=== PATIENT | female | born 1965 | race Caucasian/White ===

== ENCOUNTER 2021-01-15 05:40 | Emergency (ER) | payer OTHER ==
[~2021-01-15] VITALS: Ht 175.3 cm; Wt 71.4 kg
[2021-01-15 06:25] VITALS: BP 166/117
[2021-01-15] MEDS ORDERED: ASPIRIN CHEWABLE 81 MG TABLET. PO ONE (06:30)
--- NOTE | 2021-01-15 06:33 | PHYS DOC ---
Past History Past Medical History: Hypothyroid Additional Past Medical Histor: PLEURISY Past Surgical History: , Hysterectomy, Other Additional Past Surgical Histo: CARPAL TUNNEL Smoking: Cigarettes Adult General Chief Complaint Chief Complaint: SHORTNESS OF BREATH HPI HPI Patient is a 55-year-old female presenting for right-sided chest pain. Reports she was sleeping and woke up from her sleep with focal right-sided chest pain. Nothing known makes better, deep inspiration makes worse. Pain described as sharp and focal without radiation that is deep in right breast. Timing of symptoms has been constant since 2 AM. Reports with deep inhalation, severity is 9/10. Has history of pleurisy in the past, is concerned this feels like similar episodes. Also reports nasal congestion for past 48 hours without fever, cough or other concerning symptoms. Admits her son was recently sick and was evaluated at our facility within the past week, he was negative for COVID-19 at that time. Patient also admits going to same son's wedding 48 hours prior to arrival today. She has been vaccinated for COVID-19 with Moderna. Patient does have a history of ongoing cigarette abuse. No history of CAD, hemoptysis, blood clots, lower extremity swelling, long distance travel or hormone use Review of Systems Review of Systems Fourteen body systems of review of systems have been reviewed. See HPI for pertinent positives and negative responses, other ricardo all other systems are negative, non-pertinent or non-contributory Allergies Allergies Allergies Coded Allergies Type Severity Reaction Last Updated Verified No Known Drug Allergies 01/15/21 No Physical Exam Physical Exam Constitutional: Well developed, well nourished, no acute distress, non-toxic appearance. HENT: Normocephalic, atraumatic, bilateral external ears normal, oropharynx moist, no oral exudates, nose normal. Eyes: PERRLA, EOMI, conjunctiva normal, no discharge. Neck: Normal range of motion, no tenderness, supple, no stridor. Cardiovascular: Heart rate regular, sinus rhythm, no murmurs rubs or gallops Lungs & Thorax: Bilateral breath sounds clear to auscultation Abdomen: Bowel sounds normal, soft, no tenderness, no masses, no pulsatile masses. Nonsurgical abdomen, no peritoneal signs Skin: Warm, dry, no erythema, no rash. Back: No tenderness, no CVA tenderness. Extremities: No tenderness, no cyanosis, no clubbing, ROM intact, no edema. Neurologic: Alert and oriented X 3, grossly normal motor & sensory function, no focal deficits noted. Psychologic: Affect normal, judgement normal, mood normal. Current Patient Data Vital Signs Vital Signs Date Time Temp Pulse Resp B/P (MAP) Pulse Ox O2 Delivery O2 Flow Rate FiO2 01/15/21 06:25 98.1 75 18 166/117 100 Room Air Lab Results Laboratory Tests Test 01/15/21 06:55 White Blood Count 10.9 x10^3/uL Red Blood Count 4.35 x10^6/uL Hemoglobin 14.2 g/dL Hematocrit 41.9 % Mean Corpuscular Volume 97 fL Mean Corpuscular Hemoglobin 33 pg Mean Corpuscular Hemoglobin Concent 34 g/dL Red Cell Distribution Width 13.0 % Platelet Count 210 x10^3/uL Neutrophils (%) (Auto) 79 % Lymphocytes (%) (Auto) 14 % Monocytes (%) (Auto) 7 % Eosinophils (%) (Auto) 1 % Basophils (%) (Auto) 0 % Neutrophils # (Auto) 8.6 x10^3uL Lymphocytes # (Auto) 1.5 x10^3/uL Monocytes # (Auto) 0.7 x10^3/uL Eosinophils # (Auto) 0.1 x10^3/uL Basophils # (Auto) 0.0 x10^3/uL D-Dimer (Magaly) 1.65 mg/L Sodium Level 138 mmol/L Potassium Level 4.2 mmol/L Chloride Level 104 mmol/L Carbon Dioxide Level 28 mmol/L Anion Gap 6 Blood Urea Nitrogen 16 mg/dL Creatinine 0.7 mg/dL Estimated GFR (Cockcroft-Gault) 86.6 BUN/Creatinine Ratio 23 Glucose Level 123 mg/dL Calcium Level 8.2 mg/dL Total Bilirubin 0.4 mg/dL Aspartate Amino Transf (AST/SGOT) 16 U/L Alanine Aminotransferase (ALT/SGPT) 18 U/L Alkaline Phosphatase 88 U/L Troponin I Quantitative < 0.017 ng/mL Total Protein 6.8 g/dL Albumin 3.3 g/dL Albumin/Globulin Ratio 0.9 Lipase 83 U/L Current Medications Medications (Trade) Dose Ordered Sig/Connie Route PRN Reason Start Time Stop Time Status Last Admin Dose Admin Aspirin (Aspirin Chewable) 324 mg 1X ONCE PO 01/15/21 06:30 8/22/21 06:34 DC 01/15/21 06:30 Morphine Sulfate (Morphine 4mg Syringe) 4 mg 1X ONCE IV 01/15/21 07:15 01/15/21 07:42 DC 01/15/21 08:33 Iohexol (Omnipaque 350 Mg/ml) 100 ml 1X ONCE IV 01/15/21 07:30 01/15/21 07:42 DC EKG EKG EKG ordered and interpreted by myself at 0640 hrs. as sinus rhythm at 63 bpm, unremarkable intervals, no axis deviation, no obvious ischemic findings, no STEMI Radiology/Procedures Radiology/Procedures EXAMINATION: XR CHEST 1V CLINICAL HISTORY: Right-sided chest pain EXAM DATE/TIME: 01/15/2021 6:35 AM COMPARISON: 02/16/2012 FINDINGS: Lines, Tubes, and Devices: None. Cardiomediastinal Silhouette: Normal heart size. Aortic atherosclerotic ca lcification. Lungs and Pleura: Ill-defined opacity in the peripheral right midlung zone with additional mild patchy opacities scattered in the right lung. Nonspecific mild diffuse interstitial prominence, similar to prior study and likely chronic. No pleural effusion. Bones and Soft Tissues: Degenerative changes of the thoracic spine. IMPRESSION: Ill-defined focal opacity in the right midlung zone and mild patchy airspace disease in the right lung, possibly related to pneumonia but a mass in the midlu ng zone is not excluded. Correlate clinically and consider follow-up CT chest for further evaluation as indicated. Electronically signed by: Jovanni Jane DO (01/15/2021 7:00 AM) [id number] ///////////////////////////////////////////////// CTA CHEST INDICATION: rt chest pain with respiration, ill defined RML opacity, smoker. Comparison: Chest radiograph 01/15/2021. TECHNIQUE: Following the uneventful administration of intravenous contrast, 100 cc Omnipaque 350, axial CT sections were obtained through the lungs and upper abdomen. Multiplanar reconstructions and MIP images were obtained. RS compliance statement: One or more of the following individualized dose reduction techniques were utilized for this examination: 1. Automated exposure control 2. Adjustment of the mA and/or kV according to patient size 3. Use of iterative reconstruction technique FINDINGS: Pulmonary arteries: No evidence of pulmonary thromboembolic disease Lungs and Airways: Multifocal right upper lobe consolidation. Ill-defined upper lung predominant centrilobular groundglass nodules. Pleura: The pleural spaces are normal. Heart and Mediastinum: The visualized thyroid is normal in size and attenuation. No axillary or supraclavicular lymphadenopathy. Few conspicuous but not path ologically enlarged by CT criteria mediastinal lymph nodes. Normal cardiac size. No pericardial effusion. Coronary artery atherosclerotic disease. The great vessels of the thorax are normal. Abdomen: Limited images through the upper abdomen show no abnormality of the visualized organs. Bones and Soft Tissues: The visualized bones and chest wall soft tissues are within normal limits. IMPRESSION: 1. No evidence of pulmonary thromboembolic disease. 2. Right upper lobe dense consolidations, likely an infectious/inflammatory process. Recommend follow-up CT in 2-3 months after appropriate medical therapy to ensure resolution. 3. Ill-defined upper lung predominant centrilobular groundglass nodules, probably respiratory bronchiolitis or infectious bronchiolitis. Electronically signed by: Fabrizio Chapin MD (01/15/2021 8:15 AM) [facility] Heart Score C/O Chest Pain: Yes HEART Score for Chest Pain: HEART Score for Chest Pain Response (Comments) Value History Moderately Suspicious 1 ECG Normal 0 Age >45 - < 65 1 Risk Factors 1 or 2 Risk Factors 1 Troponin < Normal Limit 0 Total 3 Risk Factors: Risk Factors: DM, Current or recent (<one month) smoker, HTN, HLP, family history of CAD, obesity. Risk Scores: Risk Factors: DM, Current or recent (<one month) smoker, HTN, HLP, family history of CAD, obesity. Course & Med Decision Making Course & Med Decision Making Vitals stable. HPI, physical examination and comprehensive ER work-up nonconcerning for any emergent or surgical issues I disclosed entirety of ER findings and discussed most likely diagnosis of right middle lung pneumonia. Other diagnoses were discussed with patient such as COVID-19 infection in a vaccinated individual in addition to pulmonary embolism, CAD etc. but all deemed less likely causes of patient's presentation and subsequent work-up. Plan of care discussed at length with need for close outpatient follow-up to review today's ER visit stressed. Strict return precautions were also discussed at length with good understanding by patient. Patient voiced understanding and agreement with the plan. Patient knows to come back for repeat evaluation if concerning signs or symptoms present prior to outpatient follow-up. Hemodynamically stable, ambulatory and well-appearing at time of disposition. Dragon Disclaimer Dragon Disclaimer This electronic medical record was generated, in whole or in part, using a voice recognition dictation system. Departure Departure: Impression: Primary Impression: RML pneumonia Additional Impression: Person under investigation for COVID-19 Disposition: HOME / SELF CARE / HOMELESS Condition: STABLE Referrals: GINGER HOLGUIN (PCP) Patient Instructions: Pneumonia, Adult Additional Instructions: As discussed prior to your departure, your vitals, history, physical examination and ER work-up were nonconcerning for any emergent or surgical issues. As disclosed, you are most likely suffering from right middle lung pneumonia that should respond to antibiotics. Despite you being vaccinated, we also swabbed yo u for COVID-19, the results are pending. Please take all antibiotics to completion as scheduled. I would contact your primary care physician first thing in the morning to review ER visit today and discussed need for close outpatient follow-up when safe to do so. Any concerning signs or symptoms present prior to outpatient follow-up please do not hesitate to come back for repeat evaluation. It was a pleasure to take care of you and I wish you the best going forward Scripts Doxycycline Hyclate (DOXYCYCLINE HYCLATE) 100 Mg Capsule 1 CAP PO BID for pneumonia, #13 CAP Prov: TILA MONTES DO 01/15/21 Amoxicillin (AMOXICILLIN) 500 Mg Tablet 3 TAB PO TID for pneumonia, #30 TAB Prov: TILA MONTES DO 01/15/21 Problem Qualifiers TILA MONTES DO Jan 15, 2021 06:33
--- NOTE | 2021-01-15 06:50 | EKG ---
[address] [address] Test Date: 2021-01-15 Test Time: 06:37:50 Pat Name: THOM MONTAGUE Department: Room: Gender: F [employer] Machinist: faby user : [id number] Requested By: TILA MONTES Order Number: [id number] Reading MD: Measurements Intervals [place] Rate: 63 P: 50 WI: 128 QRS: 56 QRSD: 96 T: 60 QT: 404 QTc: 416 Interpretive Statements SINUS RHYTHM NORMAL ECG RI6.02 No previous ECG available for comparison
--- NOTE | 2021-01-15 07:02 | RAD ---
EXAMINATION: XR CHEST 1V CLINICAL HISTORY: Right-sided chest pain EXAM DATE/TIME: 01/15/2021 6:35 AM COMPARISON: 02/16/2012 FINDINGS: Lines, Tubes, and Devices: None. Cardiomediastinal Silhouette: Normal heart size. Aortic atherosclerotic calcification. Lungs and Pleura: Ill-defined opacity in the peripheral right midlung zone with additional mild patch y opacities scattered in the right lung. Nonspecific mild diffuse interstitial prominence, similar to prior study and likely chronic. No pleural effusion. Bones and Soft Tissues: Degenerative changes of the thoracic spine. IMPRESSION: Ill-defined focal opacity in the right midlung zone and mild patchy airspace disease in the right jerrica g, possibly related to pneumonia but a mass in the midlung zone is not excluded. Correlate clinically and consider follow-up CT chest for further evaluation as indicated. Electronically signed by: Jovanni Jane DO (01/15/2021 7:00 AM) [id number]
[2021-01-15] MEDS ORDERED: MORPHINE SULFATE 4 MG/ML DISP.SYRIN. IV ONE (07:15)
[2021-01-15 07:18] LABS: BASO % 0 % (0-3); EOS # 0.1 x10^3/uL (0.0-0.7); EOS % 1 % (0-3); HEMATOCRIT 41.9 % (36.0-47.0); HEMOGLOBIN 14.2 g/dL (12.0-15.5); LYMPH # 1.5 x10^3/uL (1.0-4.8); LYMPH % 14 % (24-48); MEAN CORPUSCULAR HEMOGLOBIN 33 pg (25-35); MEAN CORPUSCULAR HGB CONC 34 g/dL (31-37); MEAN CORPUSCULAR VOLUME 97 fL (79-100); MONO # 0.7 x10^3/uL (0.0-1.1); MONO % 7 % (0-9); NEUT # 8.6 x10^3uL (1.8-7.7); NEUT % 79 % (31-73); PLATELET COUNT 210 x10^3/uL (140-400); RED BLOOD COUNT 4.35 x10^6/uL (3.50-5.40); WHITE BLOOD COUNT 10.9 x10^3/uL (4.0-11.0)
[2021-01-15 07:22] LABS: CALCIUM 8.2 mg/dL (8.5-10.1); CREATININE 0.7 mg/dL (0.6-1.0); GFR 86.6; POTASSIUM 4.2 mmol/L (3.5-5.1)
[2021-01-15] MEDS ORDERED: IOHEXOL 350 MG/ML 100 ML VIAL. IV ONE (07:30)
[2021-01-15 07:32] LABS: ALBUMIN 3.3 g/dL (3.4-5.0); ALBUMIN/GLOBULIN RATIO 0.9 (1.0-1.7); TOTAL BILIRUBIN 0.4 mg/dL (0.2-1.0); TOTAL PROTEIN 6.8 g/dL (6.4-8.2)
--- NOTE | 2021-01-15 08:17 | RAD ---
CTA CHEST INDICATION: rt chest pain with respiration, ill defined RML opacity, smoker. Comparison: Chest radiograph 01/15/2021. TECHNIQUE: Following the uneventful administration of intravenous contrast, 100 cc Omnipaque 350, axi al CT sections were obtained through the lungs and upper abdomen. Multiplanar reconstructions and MIP images were obtained. RS compliance statement: One or more of the following individualized dose reduction techniques were utilized for this examinat ion: 1. Automated exposure control 2. Adjustment of the mA and/or kV according to patient size 3. Use of iterative reconstruction technique FINDINGS: Pulmonary arteries: No evidence of pulmonary thromboembolic disease Lungs and Airways: Multifocal right upper lobe consolidation. Ill-defined upper lung predominant cent rilobular groundglass nodules. Pleura: The pleural spaces are normal. Heart and Mediastinum: The visualized thyroid is normal in size and attenuation. No axillary or supra clavicular lymphadenopathy. Few conspicuous but not pathologically enlarged by CT criteria mediastina l lymph nodes. Normal cardiac size. No pericardial effusion. Coronary artery atherosclerotic disease. The great vessels of the thorax are normal. Abdomen: Limited images through the upper abdomen show no abnormality of the visualized organs. Bones and Soft Tissues: The visualized bones and chest wall soft tissues are within normal limits. IMPRESSION: 1. No evidence of pulmonary thromboembolic disease. 2. Right upper lobe dense consolidations, likely an infectious/inflammatory process. Recommend follow -up CT in 2-3 months after appropriate medical therapy to ensure resolution. 3. Ill-defined upper lung predominant centrilobular groundglass nodules, probably respiratory bronchi olitis or infectious bronchiolitis. Electronically signed by: Fabrizio Chapin MD (01/15/2021 8:15 AM) [facility]
[2021-01-15] MEDS ORDERED: DOXY100C3 PO (08:40)
[2021-01-15] MEDS ORDERED: AMOX500T PO (08:40)
[2021-01-15] MEDS ORDERED: AMOXICILLIN 250 MG CAPSULE PO ONE (08:45)
[2021-01-15] MEDS ORDERED: DOXYCYCLINE HYCLATE 100 MG TABLET PO ONE (08:45)
== END 2021-01-15 08:55 | disposition home or self-care (01) ==
LOC: ER 05:40
DX: J18.9 Pneumonia, unspecified organism (principal); Z20.822 Contact with and (suspected) exposure to COVID-19
CPT/HCPCS: 36415; 71045; 71275; 80053; 83690; 84484; 85025; 85379; 93005; 96374; 99285; C9803; J2270; U0003